=== PATIENT | male | born 1960 | race Caucasian/White ===

== ENCOUNTER 2017-12-06 14:12 | Inpatient (IN) ==
--- NOTE | 2017-12-06 15:15 | Anesthesia Evaluation PreOp ---
Date of Encounter: 12/06/17 Time of Encounter: 15:09 - Past History Planned Operation: EMERGENT AWAKE TRACH re: Laryngeal Tumor & dysphagia Cardiac History: Hyperlipidemia (Not medicated) Pulmonary History: Smoker (1ppd x 40yrs) GUM WORKER History: Denies Any Significant HX Other Medical History: Other (OA) Anesthesia History: No Prior Anesthetic Complications, Past Anesthesia Alcohol Use: occasionally, heavy (Daily beer. "Heavy drinker" noted on 2014 Pre- op. AND pt drank beer on way into hospital "to get his courage up") Drug use: none Medications and Allergies Lidocaine HCl [Lidocaine HCl Viscous] 5 ml MM TID #45 solution 12/05/17 [Rx] Tramadol HCl [Ultram] 50 mg PO BID PRN 12/05/17 [History] Vit D3-Vit K/Berberine/Hops [Ostera Tablet] 1 each PO DAILY 12/05/17 [History] 3 Allergy/AdvReac Type Severity Reaction Status Date / Time No Known Allergies Allergy Verified 05/17/15 13:30 - Meds/Allergy Pre-op Review Medications Reviewed: Yes Allergies Reviewed: Yes Beta Blockers on Current Med List: No Anesthesia Results - Labs 12/06/17 15:36 12/06/17 15:36 - Imaging EKG: pending Anesthesia Exam Vital Signs Pulse Ox 12/06/17 15:55 97 Intake and Output 12/06/17 12/06/17 12/06/17 07:59 15:59 23:59 Other: Weight 57.606 kg Patient Weight 12/06/17 23:59 Weight 57.606 kg Height: 5'7" Weight: 127# BMI = 20. 15-20# Weight loss NPO (# of Hours): Beer 1100, Coffee 0800, Cates 0700 - HEENT Pupil (Motor): Pupils equal, EOMI Mallampati: II Teeth: Normal Oral Opening: Greater than 3 - GUM WORKER LOC: Oriented GUM WORKER Motor: Normal RUE, Normal LUE, Normal RLE, Normal LLE, Normal Face GUM WORKER Sensory: Normal: RUE, LUE, RLE, LLE, Face - Cardiac Rhythm: Regular Murmur: None - Pulmonary Breath Sounds: bilateral Clear Respiratory Effort: Symmetrical Anesthesia Assess/Plan ASA Score: 3 (Smoker, EtOH/Drinker, Cholesterol,) Modified Constantin Scale for Level of Consciousness: Cooperative, oriented, and tranquil Anesthetic Plan: General, MAC Autologous Blood: Yes Recovery Plan: PACU Anes Supervising Prov Stmt: Pt seen/evaluated, R&B discussed, questions answered and consent obtained. Long Sandoval MD
--- NOTE | 2017-12-06 15:20 | ENT - History & Physical ---
Date of Encounter: 12/06/17 Time of Encounter: 15:16 Assessment and Plan (1) Airway obstruction Current Visit: Yes Status: Acute admitted to hospital for awake tracheostomy and DL/biopsy. plan for admission to the ICU after because of fresh tracheostomy. Will likely try to obtain a CT neck with contrast while admitted as well. The assessment and plan as outlined above was discussed with the patient and/or family members who expressed understanding and agreement. All questions were answered. (2) Laryngeal neoplasm Current Visit: Yes Status: Acute unclear etiology at this point, but laryngeal cancer is highly likley. planning for operative biopsy after awake tracheostomy. History of Present Illness Chief complaint: hoarse voice, can't breathe, hurts to swallow HPI: Mr. Calix is a 57 year old male who presented to the outpatient otolaryngology clinic today with a several month history of progressively worsening hoarseness of voice, pain with swallowing and exertional dyspnea. He is a long-time smoker. In the office flexible laryngoscopy was performed revealing a bilateral obstructing supraglottic tumor impairing a view of the true vocal cords. This is very suspicious for cancer therefore awake tracheostomy with direct laryngoscopy and biopsy was recommended. Past Med Surg Social Fam HX - Past Medical History Source: patient Medical history: arthritis, hyperlipidemia Psychiatric history: no psych history - Past Surgical History Surgical History: no surgical history - Social History Smoking Status: Current every day smoker Smokeless Tobacco Status: No Alcohol use: occasionally Drug use: none Medications and Allergies Lidocaine HCl [Lidocaine HCl Viscous] 5 ml MM TID #45 solution 12/05/17 [Rx] Tramadol HCl [Ultram] 50 mg PO BID PRN 12/05/17 [History] Vit D3-Vit K/Berberine/Hops [Ostera Tablet] 1 each PO DAILY 12/05/17 [History] 3 Allergy/AdvReac Type Severity Reaction Status Date / Time No Known Allergies Allergy Verified 05/17/15 13:30 ENT - ROS - Constitutional Constitutional ROS: no fever(s), no headache(s), no lethargy - EENT Nose, mouth and throat: as per HPI, change in voice, dysphagia, hoarseness, no abnormal hearing, no disequilibrium, no dizziness, no dry mouth, no epistaxis, no facial pain, no mouth lesions, no mouth pain - Cardiovascular Cardiovascular ROS IM: no chest pain - Respiratory as per HPI, dyspnea on exertion, stridor, no hemoptysis ENT Exam - General physical appearance no distress, cachectic, other (soft stridor) - Eyes PERRL, normal ocular movement - ENT normal nares, normal mucosa, poor custodial, CN 2-12 grossly intact - Neck no masses, trachea midline - Respiratory other (soft stridor at rest) Results - Labs All other labs normal.
[2017-12-06] MEDS ORDERED: Metoclopramide 10 MG/2 ML VIAL ONE (15:24)
[2017-12-06] MEDS ORDERED: Famotidine 20 MG/2 ML VIAL ONE (15:25)
[2017-12-06] MEDS ORDERED: Dexmedetomidine HCl 200 MCG/50 ML MLS IVC ONE (15:25)
[2017-12-06] MEDS ORDERED: Lidocaine OINT 35.44 GM TUBE TP ONE (15:25)
[2017-12-06] MEDS ORDERED: Lidocaine -MPF 4% 5 ML AMPUL ONE ×2 (15:27→15:43)
[2017-12-06] MEDS ORDERED: Ondansetron 4 MG/2 ML VIAL IVP PRN (15:31)
[2017-12-06 15:44] LABS: Hematocrit 41.3 % (37.5-50.1); Hemoglobin 14.6 g/dL (12.9-16.9); Mean Corpuscular HGB Conc 35.4 g/dL (31.6-35.5); Mean Corpuscular Hemoglobin 34.2 pg (28.0-33.3); Mean Corpuscular Volume 96.7 fL (83.0-100.0); Mean Platelet Volume 9.1 fL (9.4-12.4); Platelet Count 300 K/mcL (140-400); Red Blood Count 4.27 M/mcL (4.19-5.50)
[2017-12-06] MEDS ORDERED: Lidocaine Jelly 6ml 1 APPL/6 ML JEL.PF.APP ONE (15:46)
[2017-12-06] MEDS ORDERED: Lidocaine/EPI 1:100k 1% 50 ML VIAL INFILT ONE (15:46)
[2017-12-06 16:03] LABS: BUN/Creatinine Ratio 14 (6-26); Blood Urea Nitrogen 10 mg/dL (6-20); Calcium 9.6 mg/dL (8.6-10.3); Carbon Dioxide 32 mEq/L (23-29); Chloride 99 mEq/L (98-107); Glucose 84 mg/dL (70-105); Osmolality,Calculated 278 (280-300); Potassium 4.1 mEq/L (3.5-5.1); Sodium 135 mEq/L (136-145); eGFR For African Americans > 60 (> 60); eGFR For Non-African Americans > 60 (> 60)
[2017-12-06] MEDS ORDERED: *HR* Midazolam HCl 5 MG/5 ML VIAL IVP ONE (16:12)
[2017-12-06] MEDS ORDERED: *HR* Propofol 200 MG/20 ML VIAL IVP ONE (16:15)
[2017-12-06 17:06] LABS: INR 1.1; Prothrombin Time 11.8 Seconds (9.4-12.1)
[2017-12-06] MEDS ORDERED: Ondansetron 4 MG/2 ML VIAL ONE (17:50)
[2017-12-06] MEDS ORDERED: Oxymetazoline Nasal SPRAY BOTTLE NS ONE (17:52)
[2017-12-06] MEDS ORDERED: *HR* FentaNYL (PF) 100 MCG/2 ML VIAL ONE (17:55)
[2017-12-06] MEDS ORDERED: Dexamethasone 4 MG/ML VIAL ONE (18:03)
[2017-12-06] MEDS ORDERED: *HR* Succinylcholine 200 MG/10 ML VIAL IVP ONE (18:20)
--- NOTE | 2017-12-06 18:23 | ENT - Procedure Note ---
Date of procedure: 12/06/17 Pre-op diagnosis: airway obstruction, laryngeal tumor Post-op diagnosis: same Procedure: awake tracheostomy microscopic direct laryngoscopy with laryngeal biopsy Surgeon: Lewis Nicolas Was there an public aid eligibility assistant present: No Estimated blood loss (cc): 5 Specimens collected: left and right supraglottic biopsy Condition: stable
[2017-12-06] MEDS ORDERED: Naloxone 0.4 MG/ML INJ IVP PRN (18:24)
--- NOTE | 2017-12-06 19:02 | Operative Note ---
Date of procedure: 12/06/17 Pre-op diagnosis: airway obstruction, laryngeal mass Post-op diagnosis: same Procedure: Awake tracheostomy and direct laryngoscopy with laryngeal biopsy Implants: None Complications: None Anesthesia: GETA, local, IV sedation Local Anesthetics: 1% Lidocaine HCL with Epinephrine 1:200,000 SubQ (cc) (6 ml) Surgeon: Lewis Nicolas Was there an hair or beauty salon assistant present: No Estimated blood loss (cc): 5 Specimen: right and left supraglottic biopsy Condition: stable Disposition: ICU Procedure in Detail: After properly identifying the patient in the preoperative hold area and verifying informed consent, the patient was taken back to the main operating room and placed in a supine position on the operating room table. After this IV conscious sedation was undertaken. Once an adequate level of sedation was achieved the skin overlying the trachea just above the clavicles was infiltrated with 1% lidocaine with 100,000 epinephrine. A 3 cm line was then drawn in a horizontal skin crease just below the cricoid cartilage indicating the planned incision. The patient was then prepped and draped in a standard fashion for neck surgery. The skin incision was made using Bovie electrocautery on cut. Bovie electrocautery was again used to incise the platysma and until the strap muscles were encountered. The strap muscles were split in the midline revealing the thyroid isthmus, which was enlarged. The thyroid isthmus was incised in the midline and reflected laterally revealing tracheal rings. A Kitner was used to clean off the anterior surface of the trachea. A cricoid hook was placed just under the cricoid cartilage on its anterior most surface to stabilize the larynx. An incision was made sharply with a 15 blade scalpel in the interspace between the first and second tracheal ring and the airway was entered. At this point a size 6-0 cuffed Shiley tracheostomy tube was placed within the tracheotomy. The anesthesia circuit was connected and there was good return of carbon dioxide. The patient was then placed under general anesthesia. The head of the bed was then rotated 90 degrees and the patient was prepped for direct laryngoscopy. An anterior commissure laryngoscope was placed after positioning and upper incisor tooth guard. Of note the patient had very poor dentition. The laryngoscope was passed through the oral cavity into the pharynx. The epiglottis was elevated and only the posterior portion of the laryngeal inlet was visible at this point. The larynx was quite difficult to fully expose. The laryngoscope was placed into suspension as soon as the view was optimized. There were essentially no identifiable vocal cords due to a supraglottic tumor that appears to have originated on the right and extended posteriorly across the posterior commissure to the medial portion of the left arytenoid. This tumor encompassed essentially the entire false vocal cord and arytenoid on the right. It did not appear to extend into the right pyriform sinus or into the post cricoid region. The left false vocal cord appeared uninvolved however it was significantly edematous. I was not able to pass an endoscope past the false folds due to inadequate length of the only available zero degree telescope. Multiple biopsies were taken of the right false cord and arytenoid region. A single biopsy was taken of the left false cord. Hemostasis was achieved with topical oxymetazoline on neuro patties. Due to a combination of severe supraglottic obstruction with edema, difficult laryngeal exposure and lack of a sufficiently long rigid telescope, the true vocal cords could not be positively identified. Once the biopsies had been taken, the goals of the procedure had been met. The laryngoscope was taken out of suspension and removed with the upper incisor tooth guard. There was no obvious dental trauma. Following this the head of the bed was rotated back towards anesthesia for emergence. He was breathing spontaneously through his tracheostomy tube and was then transferred back to the intensive care unit in good condition.
[2017-12-06] MEDS: 0.9 % Sodium Chloride 1,000 ML IVC SCH (19:08)
[2017-12-06] MEDS ORDERED: *HR* FentaNYL (PF) 100 MCG/2 ML VIAL IVP ONE (19:44)
[2017-12-06] MEDS ORDERED: *HR* LORazepam 2 MG/ML VIAL IVP PRN ×3 (20:46)
--- NOTE | 2017-12-06 20:55 | Internal Medicine Consult Note ---
Date of Encounter: 12/06/17 Time of Encounter: 20:53 - Assessment and plan (1) Alcoholism Current Visit: Yes Status: Acute Assessment and plan: CIWA protocol. Monitor closely. (2) Tobacco abuse Current Visit: Yes Status: Acute Assessment and plan: Nicotine patch for now Smoking cessation , counseling (3) Airway obstruction Current Visit: Yes Status: Acute Assessment and plan: Completed Emergent trach. Pending ENT management (4) Laryngeal neoplasm Current Visit: Yes Status: Acute Assessment and plan: Pending ENT management (5) Arthritis Current Visit: Yes Status: Acute Assessment and plan: When necessary pain medicines - Time Spent With Patient Total time spent is greater than 50% in coordination of care (as documented) at patient's floor/unit and/or counseling patient: Internal Medicine - CN: HPI - Data of Consult Requesting Physician: Ramin Nicolas - Consult Narrative Reason for consult: Medical management History of present illness: Mr. Calix is a 57 year old male with a arthritis,long-standing history of smoking 40 pack years, alcoholism- mild where he drinks 12 beers per week approximately particularly when his favio stops by, who presents from the ENT clinic for an emergent tracheostomy for impending airway compromise secondary to obstructive malignant laryngeal tumor. Per discussion with ENT Dr. Nicolas, patient was seen in the clinic for 6 months history of hoarseness, odynophagia. On evaluation in the office he was found to have a significantly obstructed airway from a laryngeal tumor. He was therefore taken to the OR today for tracheostomy. Past Med Surg Social Fam HX - Past Medical History Medical history: arthritis, hyperlipidemia Psychiatric history: no psych history - Past Surgical History Surgical History: appendectomy - Social History Smoking Status: Current every day smoker Packs per day: 1 Smokeless Tobacco Status: No Alcohol use: occasionally, heavy (Daily beer. "Heavy drinker" noted on 2015 Pre- op. AND pt drank beer on way into hospital "to get his courage up") Drug use: none Review of systems: ROS 14 point review of systems reviewed as best as possible given presentation. Pertinent positive or negative as per HPI or otherwise reviewed as negative Internal Medicine - CN: Meds Tramadol HCl [Ultram] 50 mg PO Q6H PRN 12/05/17 [History] Albuterol Sulfate [Ventolin Hfa] 2 puff IH Q4-6H PRN 12/06/17 [History] Cholecalciferol (Vitamin D3) [Vitamin D3] 2,000 unit PO DAILY 12/06/17 [History] 3 Allergy/AdvReac Type Severity Reaction Status Date / Time No Known Allergies Allergy Verified 05/17/15 13:30 Internal Medicine - CN: Exam - Constitutional Vitals: Temp Pulse Resp BP Pulse Ox 97.7 F 83 16 158/106 97 12/06/17 18:54 12/06/17 20:00 12/06/17 20:00 12/06/17 20:00 12/06/17 20:00 Exam: General - AAO x 3 Psych - Appropriate affect/speech. No agitation Eyes - JENI. Eye lids intact. No scleral icterus Neuro - No gross peripheral or central neuro deficits on inspection Heart - Sinus. RRR. S1 and S2 present. No added HS/murmurs appreciated. No elevated JVD appreciated. Lung - tracheostomy present. Adequate air entry b/l, No crackles/wheezes appreciated GI - Soft, non-tender. No hepatosplenomegaly/ascites. BS+ - No CVA/suprapubic tenderness or palpable bladder distension Skin - Intact. No rash/petechiae/ecchymosis. Warm extremities MSK - Joints with normal ROM. No joint swellings Internal Medicine - CN: Reslt - Labs CBC & Chem 7: 12/06/17 15:36 12/06/17 15:36 Labs: Short CBC 12/06/17 Range/Units 15:36 WBC 9.0 (4.3-11.1) K/mcL Hgb 14.6 (12.9-16.9) g/dL Hct 41.3 (37.5-50.1) % Plt Count 300 (140-400) K/mcL BMP 12/06/17 15:36 Sodium 135 L Potassium 4.1 Chloride 99 Carbon Dioxide 32 H BUN 10 Creatinine 0.70 Glucose 84 Calcium 9.6 - ABG Interpretation ABG results: PT/INR, D-dimer PT 11.8 Seconds (9.4-12.1) 12/06/17 16:52 Consult Discharge Plan - Plan Referrals: Yumiko Davis MD [Primary Care Provider] -
[2017-12-06] MEDS: Nicotine 21 MG PATCH.TD24 TD SCH (23:17)
[2017-12-07] MEDS ORDERED: *HR* FentaNYL (PF) 100 MCG/2 ML VIAL IVP ONE (02:39)
[2017-12-07] MEDS: 0.9 % Sodium Chloride 1,000 ML IVC SCH ×3 (02:40→15:09)
[2017-12-07 04:18] LABS: Basophils % 0.2 %; Hematocrit 41.4 % (37.5-50.1); Hemoglobin 14.3 g/dL (12.9-16.9); Immature Granulocytes % 0.4 % (0-4); Lymphocytes # 0.9 K/mcL (0.6-4.6); Lymphocytes % 8.8 %; Mean Corpuscular HGB Conc 34.5 g/dL (31.6-35.5); Mean Corpuscular Hemoglobin 33.6 pg (28.0-33.3); Mean Corpuscular Volume 97.4 fL (83.0-100.0); Mean Platelet Volume 9.3 fL (9.4-12.4); Monocytes # 0.4 K/mcL (0.0-1.3); Monocytes % 3.9 %; Neutrophils # 8.3 K/mcL (1.6-8.9); Platelet Count 329 K/mcL (140-400); Red Blood Count 4.25 M/mcL (4.19-5.50); Red Cell Distribution Width 13.2 % (11.5-14.5); Segmented Neutrophils % 86.7 %
[2017-12-07 04:36] LABS: BUN/Creatinine Ratio 15 (6-26); Blood Urea Nitrogen 11 mg/dL (6-20); Calcium 9.4 mg/dL (8.6-10.3); Carbon Dioxide 27 mEq/L (23-29); Chloride 100 mEq/L (98-107); Glucose 108 mg/dL (70-105); Osmolality,Calculated 280 (280-300); Potassium 4.7 mEq/L (3.5-5.1); Sodium 135 mEq/L (136-145); eGFR For African Americans > 60 (> 60); eGFR For Non-African Americans > 60 (> 60)
[2017-12-07] MEDS ORDERED: Ketorolac 15 MG/ML VIAL IVP ONE (04:36)
[2017-12-07] MEDS ORDERED: MVI, adult with vitamin K 10 ML in 0.9 % Sodium Chloride 1,000 ML IVC ONE (07:23)
--- NOTE | 2017-12-07 07:23 | Internal Med Progress Note ---
Date of Encounter: 12/07/17 Time of Encounter: 07:00 - Assessment and plan (1) Airway obstruction Current Visit: Yes Status: Acute Assessment and plan: Completed Emergent trach. Continue management per ENT (2) Laryngeal neoplasm Current Visit: Yes Status: Acute Assessment and plan: Continue ENT management (3) Arthritis Current Visit: Yes Status: Acute Assessment and plan: When necessary pain medicines (4) Alcoholism Current Visit: Yes Status: Acute Assessment and plan: CIWA protocol. Monitor closely. (5) Tobacco abuse Current Visit: Yes Status: Acute Assessment and plan: Nicotine patch for now Smoking cessation , counseling - Time Spent With Patient Total time spent is greater than 50% in coordination of care (as documented) at patient's floor/unit and/or counseling patient: - Subjective Interval history: S/p emergent tracheostomy overnight - Constitutional Vitals: Temp Pulse Resp BP Pulse Ox 98.8 F 84 16 136/89 98 12/07/17 03:00 12/07/17 06:00 12/07/17 06:00 12/07/17 06:00 12/07/17 06:00 - Head Head exam: Present: atraumatic, normocephalic - Eye Eye exam: Present: PERRL, conjuntiva pink, sclera anicteric Pupils: Present: PERRL - Neck Neck exam general surgery: Present: supple, trachea midline. Absent: lymphadenopathy - Respiratory Respiratory exam: Present: CTAB. Absent: accessory muscle use, rales, rhonchi, wheezes Additional comments: Tracheostomy in place - Cardiovascular Cardiovascular exam: Present: RRR, +S1, +S2. Absent: diastolic murmur, gallop, rubs, systolic murmur - GI/Abdominal GI/Abdominal exam: Present: normal bowel sounds, soft, no peritoneal signs. Absent: distended, tenderness - Extremities Exam Extremities exam: Present: warm, radial pulses palpable and symmetrical. Absent : calf tenderness, cyanotic, pedal edema - Neurological Exam Neurological exam: Present: CN II-XII intact, oriented X3, no focal deficits. Absent: pronater drift, facial droop, speech deficit - Skin Skin exam: Present: dry, intact Internal Medicine: Result - Labs CBC & Chem 7: 12/07/17 03:52 12/07/17 03:52 Labs: Short CBC 12/06/17 12/07/17 Range/Units 15:36 03:52 WBC 9.0 9.6 (4.3-11.1) K/mcL Hgb 14.6 14.3 (12.9-16.9) g/dL Hct 41.3 41.4 (37.5-50.1) % Plt Count 300 329 (140-400) K/mcL Neutrophils # 8.3 (1.6-8.9) K/mcL BMP 12/06/17 12/07/17 15:36 03:52 Sodium 135 L 135 L Potassium 4.1 4.7 Chloride 99 100 Carbon Dioxide 32 H 27 BUN 10 11 Creatinine 0.70 0.71 Glucose 84 108 H Calcium 9.6 9.4 - ABG Interpretation ABG results: PT/INR, D-dimer PT 11.8 Seconds (9.4-12.1) 12/06/17 16:52 - VTE Documentation of Mechanical Device: Intermittent pneumatic compression device Consult Discharge Plan - Plan Referrals: Yumiko Davis MD [Primary Care Provider] -
--- NOTE | 2017-12-07 07:56 | ENT - Progress Note ---
Date of Encounter: 12/07/17 Time of Encounter: 07:54 - Assessment and Plan (1) Airway obstruction Current Visit: Yes Status: Acute trach placed yesterday evening. deflated cuff this morning, no need to keep inflated since no need for ventilatory support. will plan to change to cuffless at end of week. recommend continued stay in the ICU until first trach change. continue routine trach care. pt will need social work to arrange for home trach supplies (inner cannulas, gauze, suction catheters and a suction machine, humidifed collar). transition to PO pain meds for back pain when cleared by [facility]. (2) Laryngeal neoplasm Current Visit: Yes Status: Acute biopsies pending. will plan on CT neck and chest with contrast while in the hospital probably tomorrow to further evaluate laryngeal tumor and evaluate for cervical metastases. Subjective Narrative: 57 year old male who presented to the ENT outpatient clinic yesterday with obstructing laryngeal tumor. taken urgently to the OR for awake tracheostomy and laryngoscopy/laryngeal biopsy. POD 1 from these procedures. he did well overnight requiring minimal suctioning. his only complaint is back pain, which is currently being treated with prn IV meds until he is cleared by [facility] for PO intake. Objective Initial Vital Signs Pulse Ox 97 12/06/17 15:55 - General physical appearance no distress - Eyes PERRL, normal ocular movement - ENT normal nares, normal mucosa - Neck trachea midline, other (size [address] with minimal drainage. cuff deflated this morning. ) - Labs 12/07/17 03:52 12/07/17 03:52 Diabetes panel 12/06/17 12/07/17 Range/Units 15:36 03:52 Sodium 135 L 135 L (136-145) mEq/L Potassium 4.1 4.7 (3.5-5.1) mEq/L Chloride 99 100 (98-107) mEq/L Carbon Dioxide 32 H 27 (23-29) mEq/L BUN 10 11 (6-20) mg/dL Creatinine 0.70 0.71 (0.70-1.30) mg/dL Glucose 84 108 H (70-105) mg/dL Calcium 9.6 9.4 (8.6-10.3) mg/dL Calcium panel 12/06/17 12/07/17 Range/Units 15:36 03:52 Calcium 9.6 9.4 (8.6-10.3) mg/dL Pituitary panel 12/06/17 12/07/17 Range/Units 15:36 03:52 Sodium 135 L 135 L (136-145) mEq/L Potassium 4.1 4.7 (3.5-5.1) mEq/L Chloride 99 100 (98-107) mEq/L Carbon Dioxide 32 H 27 (23-29) mEq/L BUN 10 11 (6-20) mg/dL Creatinine 0.70 0.71 (0.70-1.30) mg/dL Glucose 84 108 H (70-105) mg/dL Calcium 9.6 9.4 (8.6-10.3) mg/dL Adrenal panel 12/06/17 12/07/17 Range/Units 15:36 03:52 Sodium 135 L 135 L (136-145) mEq/L Potassium 4.1 4.7 (3.5-5.1) mEq/L Chloride 99 100 (98-107) mEq/L Carbon Dioxide 32 H 27 (23-29) mEq/L BUN 10 11 (6-20) mg/dL Creatinine 0.70 0.71 (0.70-1.30) mg/dL Glucose 84 108 H (70-105) mg/dL Calcium 9.6 9.4 (8.6-10.3) mg/dL - VTE Documentation of Mechanical Device: Intermittent pneumatic compression device Consult Discharge Plan - Plan Referrals: Yumiko Davis MD [Primary Care Provider] -
[2017-12-07] MEDS: *HR* Heparin 5,000 UNIT/ML VIAL SQ SCH ×2 (08:05→20:04)
[2017-12-07] MEDS: *HR* FentaNYL (PF) 100 MCG/2 ML VIAL IVP PRN ×2 (08:05→10:57)
[2017-12-07] MEDS: Thiamine (B-1) 100 MG, Folic Acid 1 MG, MVI, adult with vitamin K 10 ML in 0.9 % Sodi... IVPB SCH (08:18)
[2017-12-07] MEDS: Nicotine 21 MG PATCH.TD24 TD SCH (08:59)
[2017-12-07] MEDS: *HR* HYDROcodone/Acet 5/325 mg TABLET PO PRN (11:54)
[2017-12-07] MEDS: *HR* OxyCODONE Immed Rel 5 MG TABLET PO PRN ×2 (15:29→20:04)
--- NOTE | 2017-12-07 16:17 | Electrocardiograph Report ---
[address] [place], [place] [address] Test Date: 2017-12-06 Pat Name: Willem Calix Department: 101 Room: [facility] Gender: M Social Media Analyst: AF : 1960 Requested By: Ramin Nicolas Order Number: [id number] Reading MD: Danielle Yanes Measurements Intervals [place] Rate: 110 P: 83 UT: 148 QRS: 73 QRSD: 77 T: 76 QT: 307 QTc: 372 Interpretive Statements SINUS TACHYCARDIA POSSIBLE RIGHT ATRIAL ENLARGEMENT NONSPECIFIC ST-WAVE ABNORMALITY ABNORMAL RHYTHM ECG Electronically Signed On 12-07-2017 16:15:27 EDT by Danielle Yanes
[2017-12-08] MEDS: 0.9 % Sodium Chloride 1,000 ML IVC SCH ×2 (01:10→19:30)
[2017-12-08 03:42] LABS: Basophils % 0.3 %; Eosinophils # 0.1 K/mcL (0.0-0.6); Eosinophils % 0.6 %; Hematocrit 37.4 % (37.5-50.1); Hemoglobin 12.8 g/dL (12.9-16.9); Immature Granulocytes % 0.2 % (0-4); Lymphocytes # 2.2 K/mcL (0.6-4.6); Lymphocytes % 21.2 %; Mean Corpuscular HGB Conc 34.2 g/dL (31.6-35.5); Mean Corpuscular Hemoglobin 33.1 pg (28.0-33.3); Mean Corpuscular Volume 96.6 fL (83.0-100.0); Mean Platelet Volume 9.5 fL (9.4-12.4); Monocytes # 0.7 K/mcL (0.0-1.3); Monocytes % 7.2 %; Neutrophils # 7.2 K/mcL (1.6-8.9); Platelet Count 280 K/mcL (140-400); Red Blood Count 3.87 M/mcL (4.19-5.50); Red Cell Distribution Width 13.2 % (11.5-14.5); Segmented Neutrophils % 70.5 %
[2017-12-08 04:03] LABS: BUN/Creatinine Ratio 19 (6-26); Blood Urea Nitrogen 11 mg/dL (6-20); Calcium 8.6 mg/dL (8.6-10.3); Carbon Dioxide 26 mEq/L (23-29); Chloride 103 mEq/L (98-107); Glucose 101 mg/dL (70-105); Osmolality,Calculated 278 (280-300); Sodium 134 mEq/L (136-145); eGFR For African Americans > 60 (> 60); eGFR For Non-African Americans > 60 (> 60)
--- NOTE | 2017-12-08 07:49 | ENT - Progress Note ---
Date of Encounter: 12/08/17 Time of Encounter: 07:46 - Assessment and Plan (1) Airway obstruction Current Visit: Yes Status: Acute POD2 s/p trach and DL/biopsy. keep cuff deflated. PO diet. pain control. will plan to change to cuffless at end of week. recommend continued stay in the ICU until first trach change. continue routine trach care. pt will need social work to arrange for home trach supplies (inner cannulas, gauze, suction catheters and a suction machine, humidifed collar). (2) Laryngeal neoplasm Current Visit: Yes Status: Acute biopsies pending. will plan on CT neck and chest with contrast today to further evaluate laryngeal tumor and evaluate for cervical metastases. Subjective Narrative: 57 year old male who presented to the ENT outpatient clinic 12/06/17 with obstructing laryngeal tumor. taken urgently to the OR for awake tracheostomy and laryngoscopy/laryngeal biopsy. POD 2 from these procedures. he did well overnight requiring minimal suctioning. will order CT of neck and chest with contrast today to evaluate tumor. path report pending for biopsy. Objective Initial Vital Signs Pulse Ox 97 12/06/17 15:55 - General physical appearance well developed, well nourished, no distress - Eyes PERRL, normal ocular movement - ENT normal nares, normal mucosa - Neck no masses, trachea midline, other (size [address], clean, cuff deflated) - Labs 12/08/17 03:23 12/08/17 03:23 Diabetes panel 12/08/17 Range/Units 03:23 Sodium 134 L (136-145) mEq/L Potassium 4.0 (3.5-5.1) mEq/L Chloride 103 (98-107) mEq/L Carbon Dioxide 26 (23-29) mEq/L BUN 11 (6-20) mg/dL Creatinine 0.57 L (0.70-1.30) mg/dL Glucose 101 (70-105) mg/dL Calcium 8.6 (8.6-10.3) mg/dL Calcium panel 12/08/17 Range/Units 03:23 Calcium 8.6 (8.6-10.3) mg/dL Pituitary panel 12/08/17 Range/Units 03:23 Sodium 134 L (136-145) mEq/L Potassium 4.0 (3.5-5.1) mEq/L Chloride 103 (98-107) mEq/L Carbon Dioxide 26 (23-29) mEq/L BUN 11 (6-20) mg/dL Creatinine 0.57 L (0.70-1.30) mg/dL Glucose 101 (70-105) mg/dL Calcium 8.6 (8.6-10.3) mg/dL Adrenal panel 12/08/17 Range/Units 03:23 Sodium 134 L (136-145) mEq/L Potassium 4.0 (3.5-5.1) mEq/L Chloride 103 (98-107) mEq/L Carbon Dioxide 26 (23-29) mEq/L BUN 11 (6-20) mg/dL Creatinine 0.57 L (0.70-1.30) mg/dL Glucose 101 (70-105) mg/dL Calcium 8.6 (8.6-10.3) mg/dL - VTE Documentation of Mechanical Device: Intermittent pneumatic compression device Consult Discharge Plan - Plan Referrals: Yumiko Davis MD [Primary Care Provider] -
[2017-12-08] MEDS ORDERED: Isovue-370 500 ML INFUS..BTL IV ONE (07:50)
[2017-12-08] MEDS ORDERED: hydrALAZINE 25 MG TABLET PO PRN (07:52)
--- NOTE | 2017-12-08 07:56 | Internal Med Progress Note ---
Date of Encounter: 12/08/17 Time of Encounter: 07:50 - Assessment and plan (1) Airway obstruction Current Visit: Yes Status: Acute Assessment and plan: Completed Emergent trach. Post op day #2 Continue management per ENT (2) Laryngeal neoplasm Current Visit: Yes Status: Acute Assessment and plan: Continue ENT management (3) Arthritis Current Visit: Yes Status: Acute Assessment and plan: When necessary pain medicines (4) Alcoholism Current Visit: Yes Status: Acute Assessment and plan: CIWA protocol. Monitor closely. (5) Tobacco abuse Current Visit: Yes Status: Acute Assessment and plan: Nicotine patch for now Smoking cessation , counseling (6) Hypertension Current Visit: Yes Status: Acute Assessment and plan: Hydralazine prn Qualifiers: Hypertension type: essential hypertension Qualified Code(s): I10 - Essential (primary) hypertension - Time Spent With Patient Total time spent is greater than 50% in coordination of care (as documented) at patient's floor/unit and/or counseling patient: - Subjective Interval history: No acute events overnight - Constitutional Vitals: Temp Pulse Resp BP Pulse Ox 99.0 F 89 18 151/101 94 12/08/17 07:15 12/08/17 06:00 12/08/17 06:00 12/08/17 06:00 12/08/17 06:00 - Head Head exam: Present: atraumatic, normocephalic - Eye Eye exam: Present: PERRL, conjuntiva pink, sclera anicteric Pupils: Present: PERRL - Neck Neck exam general surgery: Present: supple, trachea midline. Absent: lymphadenopathy - Respiratory Respiratory exam: Present: CTAB. Absent: accessory muscle use, rales, rhonchi, wheezes Additional comments: tracheostomy in place - Cardiovascular Cardiovascular exam: Present: RRR, +S1, +S2. Absent: diastolic murmur, gallop, rubs, systolic murmur - GI/Abdominal GI/Abdominal exam: Present: normal bowel sounds, soft, no peritoneal signs. Absent: distended, tenderness - Extremities Exam Extremities exam: Present: warm, radial pulses palpable and symmetrical. Absent : calf tenderness, cyanotic, pedal edema - Neurological Exam Neurological exam: Present: CN II-XII intact, oriented X3, no focal deficits. Absent: pronater drift, facial droop, speech deficit - Skin Skin exam: Present: dry, intact Internal Medicine: Result - Labs CBC & Chem 7: 12/08/17 03:23 12/08/17 03:23 Labs: Short CBC 12/08/17 Range/Units 03:23 WBC 10.2 (4.3-11.1) K/mcL Hgb 12.8 L D (12.9-16.9) g/dL Hct 37.4 L (37.5-50.1) % Plt Count 280 (140-400) K/mcL Neutrophils # 7.2 (1.6-8.9) K/mcL BMP 12/08/17 03:23 Sodium 134 L Potassium 4.0 Chloride 103 Carbon Dioxide 26 BUN 11 Creatinine 0.57 L Glucose 101 Calcium 8.6 - ABG Interpretation ABG results: PT/INR, D-dimer PT 11.8 Seconds (9.4-12.1) 12/06/17 16:52 - VTE Documentation of Mechanical Device: Intermittent pneumatic compression device Consult Discharge Plan - Plan Referrals: Yumiko Davis MD [Primary Care Provider] -
[2017-12-08] MEDS: Nicotine 21 MG PATCH.TD24 TD SCH (08:49)
[2017-12-08] MEDS: *HR* Heparin 5,000 UNIT/ML VIAL SQ SCH ×2 (08:50→19:30)
[2017-12-08] MEDS: *HR* OxyCODONE Immed Rel 5 MG TABLET PO PRN ×3 (08:55→21:38)
[2017-12-08] MEDS: Thiamine (B-1) 100 MG, Folic Acid 1 MG, MVI, adult with vitamin K 10 ML in 0.9 % Sodi... IVPB SCH (08:57)
[2017-12-08] MEDS: *HR* HYDROcodone/Acet 5/325 mg TABLET PO PRN ×2 (12:02→19:30)
[2017-12-09] MEDS: *HR* OxyCODONE Immed Rel 5 MG TABLET PO PRN ×4 (03:33→23:06)
[2017-12-09 03:48] LABS: Basophils # 0.1 K/mcL (0.0-0.2); Basophils % 0.5 %; Eosinophils # 0.3 K/mcL (0.0-0.6); Eosinophils % 2.8 %; Hematocrit 38.1 % (37.5-50.1); Immature Granulocytes % 0.1 % (0-4); Lymphocytes # 2.2 K/mcL (0.6-4.6); Lymphocytes % 23.3 %; Mean Corpuscular HGB Conc 34.1 g/dL (31.6-35.5); Mean Corpuscular Hemoglobin 33.1 pg (28.0-33.3); Mean Corpuscular Volume 96.9 fL (83.0-100.0); Mean Platelet Volume 9.4 fL (9.4-12.4); Monocytes # 0.8 K/mcL (0.0-1.3); Monocytes % 8.5 %; Neutrophils # 6.2 K/mcL (1.6-8.9); Platelet Count 282 K/mcL (140-400); Red Blood Count 3.93 M/mcL (4.19-5.50); Red Cell Distribution Width 13.2 % (11.5-14.5); Segmented Neutrophils % 64.8 %
[2017-12-09 04:12] LABS: BUN/Creatinine Ratio 14 (6-26); Blood Urea Nitrogen 8 mg/dL (6-20); Calcium 9.2 mg/dL (8.6-10.3); Carbon Dioxide 28 mEq/L (23-29); Chloride 105 mEq/L (98-107); Glucose 102 mg/dL (70-105); Osmolality,Calculated 285 (280-300); Potassium 4.1 mEq/L (3.5-5.1); Sodium 138 mEq/L (136-145); eGFR For African Americans > 60 (> 60); eGFR For Non-African Americans > 60 (> 60)
[2017-12-09] MEDS: 0.9 % Sodium Chloride 1,000 ML IVC SCH (06:13)
[2017-12-09] MEDS: *HR* HYDROcodone/Acet 5/325 mg TABLET PO PRN ×4 (06:17→19:50)
--- NOTE | 2017-12-09 07:43 | ENT - Progress Note ---
Date of Encounter: 12/09/17 Time of Encounter: 07:41 - Assessment and Plan (1) Airway obstruction Current Visit: Yes Status: Acute POD3 s/p trach and DL/biopsy. keep cuff deflated. PO diet. pain control. will plan to change to cuffless tomorrow AM. if all goes well and home health/ DME are arranged by then can plan on discharge tomorrow afternoon. recommend continued stay in the ICU until first trach change. continue routine trach care. (2) Laryngeal neoplasm Current Visit: Yes Status: Acute biopsies pending. CT indicates extensive bilateral laryngeal involvement, but essentially no spread outside of the larynx and no cartilage invasion. Subjective Patient reports: no new complaints Narrative: 57 year old male who presented to the ENT outpatient clinic 12/06/17 with obstructing laryngeal tumor. taken urgently to the OR for awake tracheostomy and laryngoscopy/laryngeal biopsy. POD 3 from these procedures. he did well overnight requiring minimal suctioning. CT obtained yesterday showing disease essentially confined to the supraglottic and glottic larynx, but is bilateral and appears by my read to invade the paraglottic space. path report still pending for biopsy. Objective Initial Vital Signs Pulse Ox 97 12/06/17 15:55 - General physical appearance well developed, well nourished, no distress - Eyes PERRL, normal ocular movement - ENT normal nares, poor mcfp, CN 2-12 grossly intact - Neck other (size [address], sutured. clean. cuff deflated.) - Labs 12/09/17 03:31 12/09/17 03:31 Diabetes panel 12/09/17 Range/Units 03:31 Sodium 138 (136-145) mEq/L Potassium 4.1 (3.5-5.1) mEq/L Chloride 105 (98-107) mEq/L Carbon Dioxide 28 (23-29) mEq/L BUN 8 (6-20) mg/dL Creatinine 0.58 L (0.70-1.30) mg/dL Glucose 102 (70-105) mg/dL Calcium 9.2 (8.6-10.3) mg/dL Calcium panel 12/09/17 Range/Units 03:31 Calcium 9.2 (8.6-10.3) mg/dL Pituitary panel 12/09/17 Range/Units 03:31 Sodium 138 (136-145) mEq/L Potassium 4.1 (3.5-5.1) mEq/L Chloride 105 (98-107) mEq/L Carbon Dioxide 28 (23-29) mEq/L BUN 8 (6-20) mg/dL Creatinine 0.58 L (0.70-1.30) mg/dL Glucose 102 (70-105) mg/dL Calcium 9.2 (8.6-10.3) mg/dL Adrenal panel 12/09/17 Range/Units 03:31 Sodium 138 (136-145) mEq/L Potassium 4.1 (3.5-5.1) mEq/L Chloride 105 (98-107) mEq/L Carbon Dioxide 28 (23-29) mEq/L BUN 8 (6-20) mg/dL Creatinine 0.58 L (0.70-1.30) mg/dL Glucose 102 (70-105) mg/dL Calcium 9.2 (8.6-10.3) mg/dL - VTE Documentation of Mechanical Device: Intermittent pneumatic compression device Consult Discharge Plan - Plan Referrals: Yumiko Davis MD [Primary Care Provider] -
[2017-12-09] MEDS: *HR* Heparin 5,000 UNIT/ML VIAL SQ SCH ×2 (08:22→19:51)
[2017-12-09] MEDS: Nicotine 21 MG PATCH.TD24 TD SCH (08:22)
[2017-12-09] MEDS: Thiamine (B-1) 100 MG, Folic Acid 1 MG, MVI, adult with vitamin K 10 ML in 0.9 % Sodi... IVPB SCH (08:22)
--- NOTE | 2017-12-09 11:42 | Discharge Summary ---
- NOTES TO OUTPATIENT PROVIDER Notes to Outpatient Provider: Patient will be contacted about follow up in the ENT clinic with Dr. Inman and about the outcome of the tumor board discussion next week. Orders not resulted at time of discharge: Pending orders 12/06/17 18:14 Surgical Pathology [PTH] Routine 12/08/17 16:25 EKG [ECG 12 lead ECG] [ECG] Routine Date of Encounter: 12/10/17 Time of Encounter: 08:29 - Discharge Diagnosis (1) Airway obstruction Priority: Primary Status: Acute Comments: tracheostomy placed (2) Laryngeal neoplasm Priority: Secondary Status: Acute Comments: pending pathology report. suspicion is high for laryngeal cancer. referred to tumor board next week for treatment recommendations. follow up next week with Dr. Inman in ENT clinic. - Hospital Course Hospital course: Mr. Calix is a 57 year old male who was admitted from the ENT clinic for airway obstruction due to an obstructing laryngeal tumor. An urgent tracheostomy was performed and at the same time direct laryngoscopy was performed to further evaluate the tumor and obtain biopsies. He was admitted to the ICU following up for airway monitoring. His surgery took place on 2017. His time in the intensive care unit was unremarkable. There were no acute events. His labs were stable for his entire stay. He was evaluated by speech pathology and cleared for a full oral diet. A CT scan with contrast was obtained of his neck and chest to evaluate the tumor and the results indicate that the mass encompasses nearly his entire larynx but there was no evidence of spread outside of the larynx. His cuffed tracheostomy tube was changed for the first time on December 10, which is this morning. A size 6 fenestrated Shiley uncuffed tracheostomy tube was placed. He tolerated the trach change well and was discharged following a short period of observation. He was referred to the cancer center and will be presented at tumor board next week. He will follow- up with Dr. Servin in ENT next week as well. Time spent discussing smoking cessation with patient: more than 10 minutes - Time Spent with Patient Total time spent providing and/or coordinating discharge services: Less than 30 minutes Specific discharge activities: Home health for assistance with tracheostomy mainenance, but no activity or diet restrictions. Date of admission: 12/06/17 15:31 Primary care physician: Yumiko Davis Consults: 12/06/17 15:52 Consult to Nutrition [CONS] Routine Comment: <15lbs within 6 months Consulting Provider: NUTRITION Reason for Dietary Consult: PO Supplementation Other:: d/t throat pain, pt has lost <15 lbs in 6 months 12/06/17 18:24 Consult to [employer] [CONS] Routine Reason for SW Consult: will need home trach supplies including inner cannulas , sponges and suction machine. 12/06/17 20:46 Consult to Speech Therapy [CONS] Routine Comment: Evaluate, develop and implement POC Reason for Consult: speech and swallowing valuation Call Completed: No 12/06/17 20:52 Consult to Hospitalist [CONS] Routine Consulting Provider: Hospitalist Diane Reason for Consult: care Time Notified: 20:45 Call Completed: Yes Discharging clinician: Lewis Nicolas Anticipated date of discharge: 12/10/17 (after trach change) - Discharge Medications Prescriptions: Hydrocodone/Acetaminophen [Hydrocodon-Acetaminophen 5-325] 1 each PO Q6H PRN 5 Days #20 tablet PRN Reason: Pain Home Medications: Tramadol HCl [Ultram] 50 mg PO Q6H PRN 12/05/17 [History] Albuterol Sulfate [Ventolin Hfa] 2 puff IH Q4-6H PRN 12/06/17 [History] Cholecalciferol (Vitamin D3) [Vitamin D3] 2,000 unit PO DAILY 12/06/17 [History] Hydrocodone/Acetaminophen [Hydrocodon-Acetaminophen 5-325] 1 each PO Q6H PRN 5 Days #20 tablet 12/09/17 [Rx] Allergies/Adverse Reactions: 3 Allergy/AdvReac Type Severity Reaction Status Date / Time No Known Allergies Allergy Verified 05/17/15 13:30 ENT Exam Initial Vital Signs Pulse Ox 97 12/06/17 15:55 - General physical appearance well developed, well nourished, no distress, no pain - Eyes PERRL, normal ocular movement - ENT normal nares, normal mucosa, poor care home, CN 2-12 grossly intact - Neck no masses, no bruits, trachea midline, no lymphadectomy, other (size 6 cuffed shiley changed to an size 6 uncuffed fenestrated shiley.) - Respiratory normal expansion, normal respiratory effort Procedures and tests throughout hospitalization: Pathology still pending from biopsies performed on December 06, 2017 Labs on day of discharge: Labs from last 24 hours 12/09/17 12/09/17 03:31 03:31 WBC 9.6 RBC 3.93 L Hgb 13.0 Hct 38.1 MCV 96.9 MCH 33.1 MCHC 34.1 RDW 13.2 Plt Count 282 MPV 9.4 Immature Gran % 0.1 Seg Neutrophils % 64.8 Lymphocytes % 23.3 Monocytes % 8.5 Eosinophils % 2.8 Basophils % 0.5 Neutrophils # 6.2 Lymphocytes # 2.2 Monocytes # 0.8 Eosinophils # 0.3 Basophils # 0.1 Sodium 138 Potassium 4.1 Chloride 105 Carbon Dioxide 28 BUN 8 Creatinine 0.58 L Est GFR ( Amer) > 60 Est GFR (Non-Af Amer) > 60 BUN/Creatinine Ratio 14 Glucose 102 Calculated Osmolality 285 Calcium 9.2 - Impressions ITS Impressions Chest CT 12/08/17 09:30 IMPRESSION: 1. Subcutaneous air within the soft tissues of the neck and pneumomediastinum extending inferiorly adjacent to the lung pleura. No definite pneumothorax noted. Findings are likely related to recent surgery. 2. Stable nodular density in the right upper lobe measuring 1.1 cm, likely representing scarring. 3. A 9 mm pulmonary nodule in the left upper lobe, slightly increased in size since 2014, measuring up to 7 mm. Metastatic nodule cannot entirely be excluded. D/ / 12/08/2017 11:19:29 Piper Flaherty MD / silvia Interpreting Provider: Piper Flaherty MD Soft Tissue Neck CT 12/08/17 09:30 IMPRESSION: 1. There is marked soft tissue thickening noted in the supraglottic larynx, compatible with malignancy as given in the patient's clinical history, asymmetric on the left. 2. No cervical lymphadenopathy to suggest metastatic disease. 3. Emphysema with right apical lung scarring, stable dating back to 05/19/2015, benign. There is also a noncalcified pulmonary nodule in the left upper lobe measuring 0.8 x 0.7 cm, unchanged and benign. 4. Extensive subcutaneous emphysema is noted along the neck, likely related to sequela of recent tracheostomy tube placement. D/ / 12/08/2017 11:09:25 Kasi Fleming MD / earnold Interpreting Provider: Kasi Fleming MD - Patient Status Disposition: Home Health Service Condition: Good Functional capacity at discharge: independent ambulation Overall status at discharge: other (pt now has tracheostomy, otherwise stable/ normal) - Ambulatory Orders Ambulatory Orders: Consult to Home Health [CONS] Time Frame: 1 Day, Location: Determined By Patient - Discharge Instructions Follow Up With: Yumiko Davis MD [Primary Care Provider] - - Diet and Activity Activity: resume usual activities as tolerated Diet: advance to your usual diet - VTE Documentation of Mechanical Device: Intermittent pneumatic compression device
--- NOTE | 2017-12-09 16:44 | Internal Med Progress Note ---
Date of Encounter: 12/09/17 Time of Encounter: 16:41 - Assessment and plan (1) Airway obstruction Current Visit: Yes Status: Acute Assessment and plan: Status post tracheostomy. ENT managing. Plan to have changed size of tracheostomy tomorrow. Should be stable for discharge afterwards. No other acute medical issues currently. (2) Laryngeal neoplasm Current Visit: Yes Status: Acute Assessment and plan: Follow-up outpatient with ENT and cancer Center (3) Arthritis Current Visit: Yes Status: Acute (4) Alcoholism Current Visit: Yes Status: Acute Assessment and plan: No signs of alcohol withdrawal. Will DC CIWA protocol. (5) Tobacco abuse Current Visit: Yes Status: Acute Assessment and plan: Continue nicotine patch (6) Hypertension Current Visit: Yes Status: Chronic Assessment and plan: Blood pressure is well controlled. Continue he is not presently on any medications at home. Would recommend outpatient follow-up for further management. Qualifiers: Hypertension type: essential hypertension Qualified Code(s): I10 - Essential (primary) hypertension - Time Spent With Patient Total time spent is greater than 50% in coordination of care (as documented) at patient's floor/unit and/or counseling patient: - Subjective Interval history: Patient seen earlier today. Was doing well. No complaints at this time. No chest pain. Mild pain around tracheostomy site but otherwise breathing well. No anxiety. No tremors. - Constitutional Vitals: Temp Pulse Resp BP Pulse Ox 98.6 F 74 20 131/88 95 12/09/17 15:43 12/09/17 16:00 12/09/17 16:00 12/09/17 16:00 12/09/17 16:00 General appearance: Present: cooperative, A&O X 3, answers questions appropriately - ENT Additional comments: Tracheostomy in place. - Neck Neck exam general surgery: Present: supple, trachea midline. Absent: lymphadenopathy - Respiratory Respiratory exam: Present: CTAB. Absent: accessory muscle use, rales, rhonchi, wheezes - Cardiovascular Cardiovascular exam: Present: RRR, +S1, +S2. Absent: diastolic murmur, gallop, rubs, systolic murmur - GI/Abdominal GI/Abdominal exam: Present: normal bowel sounds, soft, no peritoneal signs. Absent: distended, tenderness - Extremities Exam Extremities exam: Present: warm, radial pulses palpable and symmetrical. Absent : calf tenderness, cyanotic, pedal edema Internal Medicine: Result - Labs CBC & Chem 7: 12/09/17 03:31 12/09/17 03:31 Labs: Short CBC 12/09/17 Range/Units 03:31 WBC 9.6 (4.3-11.1) K/mcL Hgb 13.0 (12.9-16.9) g/dL Hct 38.1 (37.5-50.1) % Plt Count 282 (140-400) K/mcL Neutrophils # 6.2 (1.6-8.9) K/mcL BMP 12/09/17 03:31 Sodium 138 Potassium 4.1 Chloride 105 Carbon Dioxide 28 BUN 8 Creatinine 0.58 L Glucose 102 Calcium 9.2 - ABG Interpretation ABG results: PT/INR, D-dimer PT 11.8 Seconds (9.4-12.1) 12/06/17 16:52 - Impressions Impressions Chest CT 12/08/17 09:30 IMPRESSION: 1. Subcutaneous air within the soft tissues of the neck and pneumomediastinum extending inferiorly adjacent to the lung pleura. No definite pneumothorax noted. Findings are likely related to recent surgery. 2. Stable nodular density in the right upper lobe measuring 1.1 cm, likely representing scarring. 3. A 9 mm pulmonary nodule in the left upper lobe, slightly increased in size since 2014, measuring up to 7 mm. Metastatic nodule cannot entirely be excluded. D/ / 12/08/2017 11:19:29 Piper Flaherty MD / silvia Interpreting Provider: Piper Flaherty MD - VTE Documentation of Mechanical Device: Intermittent pneumatic compression device Consult Discharge Plan - Plan Referrals: Yumiko Davis MD [Primary Care Provider] - Prescriptions: Hydrocodone/Acetaminophen [Hydrocodon-Acetaminophen 5-325] 1 each PO Q6H PRN 5 Days #20 tablet PRN Reason: Pain
--- NOTE | 2017-12-09 23:25 | Electrocardiograph Report ---
[address] [place], [place] [address] Test Date: 2017-12-08 Pat Name: Willem Calix Department: 109 Room: [facility] Gender: M [employer] Worker: MARIJA : 1960 Requested By: Nancy Dale Order Number: [id number] Reading MD: Sola France Measurements Intervals [place] Rate: 87 P: 81 LA: 151 QRS: 51 QRSD: 83 T: 75 QT: 344 QTc: 389 Interpretive Statements SINUS RHYTHM Electronically Signed On 12-09-2017 23:23:34 EDT by Sola France
[2017-12-10] MEDS: *HR* HYDROcodone/Acet 5/325 mg TABLET PO PRN ×2 (03:29→10:41)
[2017-12-10 06:01] VITALS: BP 139/88
[2017-12-10] MEDS: *HR* OxyCODONE Immed Rel 5 MG TABLET PO PRN ×2 (07:46→13:57)
[2017-12-10] MEDS: *HR* Heparin 5,000 UNIT/ML VIAL SQ SCH (07:46)
[2017-12-10] MEDS: Nicotine 21 MG PATCH.TD24 TD SCH (07:46)
--- NOTE | 2017-12-10 12:53 | Event Note ---
Date of Encounter: 12/10/17 Time of Encounter: 12:52 Patient to be discharged later today by ENT if stable after first trach change. Requests prescription for nicotine patch. We will send prescription to pharmacy. No other medical issues right now. Follow up outpatient regarding medical issues including management of hypertension.
== END 2017-12-10 14:33 | disposition home health service (06) | DRG 13 ==
LOC: ICNU
PROVIDERS: ADMIT Otolaryngology; ATTEND Otolaryngology